=== PATIENT | male | born 1970 | race Two or more races ===

== ENCOUNTER 2021-09-14 14:58 | Emergency (ER) | payer OTHER ==
[2021-09-14 15:16] VITALS: BP 171/80; PULSE 84; TEMP 98; BMI 29.0
[2021-09-14] MEDS ORDERED: ceFAZolin SODIUM 1 GM VIAL IM ONE (15:59)
[2021-09-14] MEDS ORDERED: DIPHTH,PERTUSS(ACELL),TET 0.5 ML DISP.SYRIN IM ONE ×2 (15:59→16:08)
[2021-09-14] MEDS ORDERED: LIDOCAINE HCL 1%, 10 MG/ML (20ML VIAL) ONE (16:09)
[2021-09-14] MEDS ORDERED: ceFAZolin SODIUM 1 GM VIAL ONE (16:09)
== END 2021-09-14 17:07 | disposition home or self-care (01) ==
LOC: JERFT 14:58
PROC: 3E0234Z Introduction of Serum, Toxoid and Vaccine into Muscle, Percutaneous Approach (ICD-10-PCS; principal; 2021-09-14)
PROC: 3E02329 Introduction of Other Anti-infective into Muscle, Percutaneous Approach (ICD-10-PCS; 2021-09-14)
DX: M79.644 Pain in right finger(s) (principal)
CPT/HCPCS: 73130-TC-RT-FY; 90715; 99284-25

== ENCOUNTER 2021-09-22 13:01 | Emergency (ER) | payer OTHER ==
[2021-09-22 13:12] VITALS: BP 146/75; PULSE 74; RESP 18; TEMP 98.1; BMI 25.8
== END 2021-09-22 13:55 | disposition home or self-care (01) ==
LOC: JERFT 13:01
DX: Z48.02 Encounter for removal of sutures (principal)
CPT/HCPCS: 99281-25